=== PATIENT | female | born 1940 | race Caucasian/White ===

== ENCOUNTER 2017-10-26 21:27 | Emergency (ER) | payer MEDICARE ==
[~2017-10-26] VITALS: Ht 152.4 cm; Wt 50.8 kg
[2017-10-26] MEDS ORDERED: CEFTRIAXONE SOD 1 GM VIAL IV STA (21:52)
[2017-10-26] MEDS ORDERED: SODIUM CHLORIDE 0.9% 500ML 500 ML IV ONE (22:00)
--- NOTE | 2017-10-26 22:54 | Diagnostic Imaging Report ---
EXAM: CT ABDOMEN/PELVIS WO DATE: 10/26/2017 9:47 PM INDICATION: Blood in the catheter bag, stones COMPARISON: None TECHNIQUE: The abdomen and pelvis were scanned using a multidetector helical scanner. Coronal and sagittal reformations were obtained. Routine stone protocol performed. IV Contrast: 0 ml Isovue [id number] FINDINGS: Lack of IV contrast decreases sensitivity in evaluating abdominal and pelvic organs. LOWER THORAX: Cardiomegaly with partially imaged leads. LIVER: Unremarkable noncontrast appearance. GALLBLADDER: Mild biliary ductal dilation status post cholecystectomy. SPLEEN: Not visualized. Clips are noted in the left upper quadrant. PANCREAS: Unremarkable noncontrast appearance. ADRENALS: No nodules KIDNEYS: No hydronephrosis or stones. GI TRACT: Status post distal colonic resection without evidence of obstruction. VESSELS: Moderate atherosclerotic calcifications. PERITONEUM/RETROPERITONEUM: No free air or fluid LYMPH NODES: No lymphadenopathy REPRODUCTIVE ORGANS/BLADDER: Degraded by streak artifact. Suprapubic catheter terminates at the bladder with marked surrounding inflammatory stranding. Bladder contains fluid and air, presumably iatrogenic. SOFT TISSUES: Streak artifact from right lower quadrant quadrant neurostimulator device partially degrades violation of the pelvis. BONES: Decreased bone mineralization with abnormal curvature of the spine and multilevel degenerative changes. IMPRESSION: 1. Suprapubic Kauffman catheter in place. Thick-walled bladder and surrounding inflammatory changes which may be related to cystitis. 2. No hydronephrosis or evidence of obstructive uropathy. Signed by: Dr Tyesha Hernandez MD on 10/26/2017 10:50 PM
[2017-10-26 23:39] LABS: BASOPHILS % 0.4 % (0.0-1.0); EOSINOPHILS # (AUTO) 0.4 (0.0-0.4); EOSINOPHILS % 4.2 % (0.0-6.0); HEMATOCRIT 29.4 % (34.2-44.1); HEMOGLOBIN 9.6 g/dL (12.0-16.0); LYMPHOCYTES # (AUTO) 2.3 (1.0-3.2); LYMPHOCYTES % 22.2 % (18.0-39.1); MEAN CORPUSCULAR HEMOGLOBIN 29.4 pg (28-32); MEAN CORPUSCULAR HGB CONC 32.7 g/dL (31-35); MEAN CORPUSCULAR VOLUME 90.2 fL (81-99); MONOCYTES # (AUTO) 1.1 (0.2-0.8); MONOCYTES % 10.6 % (4.4-11.3); NEUTROPHILS # (AUTO) 6.3 (2.1-6.9); NEUTROPHILS % 62.3 % (38.7-80.0); PLATELET COUNT 310 x10e3/uL (140-360); RED BLOOD COUNT 3.26 x10e6/uL (3.6-5.1); RED CELL DISTRIBUTION WIDTH 13.8 % (11.7-14.4)
[2017-10-26 23:47] LABS: INR 1.18; PROTHROMBIN TIME 14.1 seconds (11.9-14.5)
[2017-10-26 23:48] LABS: PARTIAL THROMBOPLASTIN TIME 28.1 seconds (23.8-35.5)
[2017-10-26 23:55] LABS: ALANINE AMINOTRANSFERASE 9 IU/L (0-55); ALBUMIN/GLOBULIN RATIO 0.8 (0.8-2.0); ALKALINE PHOSPHATASE 68 IU/L (40-150); ANION GAP 16.1 mmol/L (8-16); BLOOD UREA NITROGEN 10 mg/dL (7-26); BUN/CREATININE RATIO 15 (6-25); CALCIUM 8.6 mg/dL (8.4-10.2); CARBON DIOXIDE 24 mmol/L (22-29); CHLORIDE 95 mmol/L (98-107); CREATINE KINASE 33 IU/L (29-168); CREATININE, SERUM 0.68 mg/dL (0.57-1.11); EST GLOMERULAR FILTRATION RATE > 60 ML/MIN (60-); GLUCOSE 79 mg/dL (74-118); MAGNESIUM 1.2 MG/DL (1.3-2.1); POTASSIUM 4.1 mmol/L (3.5-5.1); SODIUM 131 mmol/L (136-145)
[2017-10-27 00:51] LABS: CLARITY,URINE CLOUDY (CLEAR); COLOR,URINE RED (YELLOW); LEUKOCYTE ESTERASE ,URINE 1+ (NEGATIVE); NITRITE,URINE NEGATIVE (NEGATIVE); PROTEIN,URINE DIPSTICK 3+ (NEGATIVE)
[2017-10-27 00:52] LABS: BACTERIA,URINE FEW /HPF; BILIRUBIN,URINE NEGATIVE (NEGATIVE); KETONES,URINE NEGATIVE (NEGATIVE); RBC,URINE >50 /HPF (0-5); URINE UROBILINOGEN 0.2 mg/dL (0.2 - 1)
[2017-10-27 00:53] LABS: MUCUS,URINE MODERATE (RARE)
[2017-10-27] MEDS ORDERED: CEFTRIAXONE SOD 1 GM VIAL IM ONE (01:15)
[2017-10-27] MEDS ORDERED: TRAMADOL HCL 50 MG TAB PO ONE (02:15)
[2017-10-27] MEDS ORDERED: LIDOCAINE HCL 1% LOCAL INJ 20 ML VIAL ONE (02:22)
== END 2017-10-27 03:54 | disposition home or self-care (01) ==
LOC: ER 21:27
DX: N30.91 Cystitis, unspecified with hematuria (principal); I10 Essential (primary) hypertension; G20 Parkinson's disease; F02.80 Dementia in other diseases classified elsewhere, unspecified severity, without behavioral disturbance, psychotic disturbance, mood disturbance, and anxiety; I50.9 Heart failure, unspecified
CPT/HCPCS: 36415; 74176; 80053; 81001; 82550; 82553; 83735; 84484; 85025; 85610; 85730; 87086; 93005; 99284; J0696; J2001